=== PATIENT | female | born 1975 | race Caucasian/White ===

== ENCOUNTER 2018-11-16 05:57 | Day surgery (SDC) | payer OTHER ==
[2018-11-16] MEDS: BUPIVACAINE 0.5%/EPI (SDV) 30 ML INJ (07:04)
[2018-11-16] MEDS ORDERED: METOCLOPRAMIDE 10 MG INJ (07:32)
[2018-11-16] MEDS ORDERED: ONDANSETRON 4 MG INJ (07:32)
[2018-11-16] MEDS ORDERED: ROCURONIUM 50 MG INJ (07:32)
[2018-11-16] MEDS ORDERED: FENTAnyl 50 MCG/ML VIAL (07:32)
[2018-11-16] MEDS ORDERED: PROPOFOL 20 ML (07:32)
[2018-11-16] MEDS ORDERED: SUCCINYLCHOLINE CHLORIDE 100 MG/5 ML SYG IV (07:32)
[2018-11-16] MEDS ORDERED: MIDAZOLAM 1 MG/ML 2 ML INJ ×2 (07:32→07:49)
[2018-11-16] MEDS ORDERED: PHENYLephrine (100 MCG/ML) 10ML SYG (07:55)
[2018-11-16] MEDS ORDERED: LIDOCAINE 100 MG SYRINGE (07:55)
[2018-11-16] MEDS ORDERED: CEFAZOLIN 1 GM INJ (07:55)
[2018-11-16] MEDS ORDERED: OXYCODONE/ACETAMINOPHEN (5/325) TAB PO ×2 (08:00→08:30)
[2018-11-16] MEDS ORDERED: HYDROmorphONE 1 MG/5 ML IV SYRINGE IV (08:00)
[2018-11-16] MEDS ORDERED: morphine (1 MG/ML) 10ML SYRINGE IV (08:00)
[2018-11-16] MEDS ORDERED: hydrALAzine 20 MG INJ IV (08:00)
[2018-11-16] MEDS ORDERED: LABETALOL HCL 20MG INJ IV (08:00)
[2018-11-16] MEDS ORDERED: DIPHENHYDRAMINE 50 MG INJ IV (08:00)
[2018-11-16] MEDS ORDERED: METOCLOPRAMIDE 10 MG INJ IV (08:00)
[2018-11-16] MEDS ORDERED: FENTAnyl 50 MCG/ML VIAL IV (08:00)
[2018-11-16] MEDS ORDERED: LORAZEPAM 2 MG INJ IV (08:00)
[2018-11-16] MEDS ORDERED: KETOROLAC 30 MG INJ IV (08:00)
[2018-11-16] MEDS ORDERED: ESMOLOL 10 ML (08:24)
[2018-11-16] MEDS ORDERED: morphine 2 MG INJ IV (08:30)
[2018-11-16] MEDS ORDERED: ONDANSETRON 4 MG INJ IV (08:30)
[2018-11-16] MEDS: ALBUTEROL 0.083% (NEB) 2.5 MG/3 ML AMP HHN (09:02)
[2018-11-16] MEDS: MEPERIDINE 25 MG INJ IV (09:03)
[2018-11-16] MEDS: ONDANSETRON 4 MG INJ IV (09:03)
[2018-11-16] MEDS: OXYCODONE/ACETAMINOPHEN (5/325) TAB PO (11:47)
== END 2018-11-16 12:00 | disposition home or self-care (01) ==
LOC: SDS 05:57
DX: K41.90 Unilateral femoral hernia, without obstruction or gangrene, not specified as recurrent (principal)
CPT/HCPCS: 49550